=== PATIENT | female | born 1975 | race Caucasian/White ===

== ENCOUNTER 2017-09-01 17:32 | Emergency (ER) | payer OTHER ==
[~2017-09-01] VITALS: Ht 172.7 cm; Wt 105.5 kg
[~2017-09-01 17:32] MED LIST: ACET500C5 PO; ALPR1TAB2 PO; ASPI81TA3 PO; BACTDS PO; CARI350T PO; CEPH-443 PO; CLIN-73 PO; HYDR-762 PO; LACO100T3 PO; LEVE100018 PO; LEVO50TA74 PO; NAPR-688 PO; NORT25CA PO; PROP40TA4 PO; RANI150T5 PO; TRAM50TA2 PO
[2017-09-01 17:38] VITALS: Ht 172.7 cm; Wt 105.5 kg
[2017-09-01] MEDS ORDERED: CLINDAMYCIN 900 MG/D5W (PMX) 50 ML IVPB SCH (18:30)
[2017-09-01 18:46] LABS: BASOPHIL # 0.1 10^3/ul (0.0-0.1); BASOPHILS % 0.6 % (0.0-2.0); EOSINOPHILS % 0.3 % (0.0-7.0); HEMATOCRIT 37.3 % (37.0-47.0); HEMOGLOBIN 12.4 g/dl (12.0-16.0); LYMPHOCYTES # 2.8 10^3/ul (0.8-2.9); LYMPHOCYTES % 30.3 % (15.0-51.0); MEAN CORPUSCULAR HEMOGLOBIN 29.5 pg (29.0-33.0); MEAN CORPUSCULAR HGB CONC 33.2 g/dl (32.0-37.0); MEAN CORPUSCULAR VOLUME 88.8 fl (82.0-101.0); MEAN PLATELET VOLUME 10.2 fl (7.4-10.4); MONOCYTE # 0.7 10^3/ul (0.3-0.9); MONOCYTES % 7.1 % (0.0-11.0); NEUTROPHIL # 5.7 10^3/ul (1.6-7.5); NEUTROPHILS % 61.5 % (39.0-77.0); PLATELET COUNT 348 10^3/UL (140-415); RED CELL DISTRIBUTION WIDTH 12.6 % (11.5-14.5); WHITE BLOOD COUNT 9.3 10^3/ul (4.8-10.8)
--- NOTE | 2017-09-01 19:04 | RADRPT ---
PROCEDURE: XR Left Foot CLINICAL INDICATION: Trauma, post fall TECHNIQUE: AP, oblique, and lateral radiographs were submitted. COMPARISON: None FINDINGS: Osseous structures: There is an old oblique fracture deformity involving the distal left fifth metat arsal. The osseous elements otherwise appear intact. There is calcaneal spurring at the insertion of the plantar aponeurosis. Joint spaces: are well maintained, with no significant spurring, erosion or joint effusion evident. Soft tissues: appear unremarkable. IMPRESSION: 1. Old healing oblique fracture deformity involving the distal left fifth metatarsal shaft. 2. Mild calcaneal spurring 3. Otherwise, unremarkable left foot series. Physician Lola Date Time Electronically viewed and signed by Physician Lola on 09/01/2017 19:03 /
[2017-09-01 19:20] LABS: ALBUMIN 4.5 g/dl (3.3-4.9); ALBUMIN/GLOBULIN RATIO 1.28; BILIRUBIN,INDIRECT 0.5 mg/dl (0-1.1); BILIRUBIN,TOTAL 0.5 mg/dl (0.2-1.3); CALCIUM 9.6 mg/dl (8.4-10.2); CREATININE 0.66 mg/dl (0.44-1.00); POTASSIUM 3.7 mmol/L (3.5-5.1)
[2017-09-01] MEDS ORDERED: CLIN-73 PO (19:23)
[2017-09-01] MEDS ORDERED: TRAM50TA2 PO (19:23)
[2017-09-01] MEDS ORDERED: ONDANSETRON 4 MG INJ IV STA (19:25)
[2017-09-01] MEDS ORDERED: KETOROLAC 30 MG INJ IV STA (19:25)
[2017-09-01] MEDS ORDERED: KETOROLAC 30 MG INJ ONE (19:27)
[2017-09-01] MEDS ORDERED: ONDANSETRON 4 MG INJ ONE (19:27)
--- NOTE | 2017-09-01 19:29 | ERD ---
ER Documentation Chief Complaint Chief Complaint redness to bilateral lower legs since yesterday HPI This 42-year-old female presents with bilateral lower extremity redness since yesterday. Patient has a history of diabetes and recurrent lower extremity cellulitis. She denies any shortness of breath or fevers. Patient has an additional complaint of falling 2 days ago and having pain on the left foot in the distal fifth metatarsal area. She has no restricted range of motion weakness or bleeding. Patient is concerned about some bruises that she has. One being on the left marshall one being on the left thigh. ROS All systems reviewed and are negative except as per history of present illness. Medications Home Meds Active Scripts Tramadol HCl (Tramadol HCl) 50 Mg Tablet, 50 MG PO Q4 Y for PAIN, #15 TAB Prov:NICK GOYAL MD 09/01/17 Clindamycin Hcl* (Clindamycin Hcl*) 300 Mg Capsule, 300 MG PO QID for 7 Days, CAP Prov:NICK GOYAL MD 09/01/17 Naproxen* (Naproxen*) 500 Mg Tablet, 500 MG PO BID, #20 TAB Prov:GIOVANI PARSON DO 04/18/16 Clindamycin Hcl* (Clindamycin Hcl*) 300 Mg Capsule, 300 MG PO TID for 10 Days, CAP Prov:GIOVANI PARSON DO 04/18/16 Acetaminophen* (Tylophen*) 500 Mg Capsule, 1 CAP PO Q6H Y for PAIN AND OR ELEVATED TEMP, #20 CAP Prov:MATHIEU SHEPARD NP 04/09/16 Cephalexin* (Keflex*) 500 Mg Capsule, 500 MG PO QID for 10 Days, CAP Prov:MATHIEU SHEPARD NP 04/09/16 Sulfamethoxazole-Trimethoprim* (Bactrim* DS) 800-160 Mg Tab, 1 TAB PO BID for 10 Days, TAB Prov:MATHIEU SHEPARD NP 04/09/16 Sulfamethoxazole-Trimethoprim* (Bactrim* DS) 800-160 Mg Tab, 1 TAB PO BID for 10 Days, TAB Prov:BRUCE CHUNG MD 02/24/15 Cephalexin* (Keflex*) 500 Mg Capsule, 500 MG PO Q6 for 10 Days, CAP Prov:BRUCE CHUNG MD 02/24/15 Reported Medications Propranolol Hcl* (Propranolol Hcl*) 40 Mg Tablet, 40 MG PO BID, TAB 02/20/15 Tramadol HCl (Tramadol HCl) 50 Mg Tab, 50 MG PO Q6H Y for PAIN, TAB 09/10/14 Alprazolam* (Xanax*) 1 Mg Tab, 1 MG PO Q6 Y for ANXIETY, TAB 09/10/14 Carisoprodol* (Soma*) 350 Mg Tablet, 350 MG PO QHS Y for MUSCLE SPASMS, TAB 09/10/14 Lacosamide (Vimpat) 100 Mg Tablet, 100 MG PO BID, TAB 09/10/14 Ranitidine Hcl* (Ranitidine Hcl*) 150 Mg Tablet, 150 MG PO Q12, TAB 09/10/14 Nortriptyline Hcl* (Nortriptyline Hcl*) 25 Mg Capsule, 100 MG PO DAILY, CAP 09/10/14 Levothyroxine Sodium* (Levothyroxine Sodium*) 50 Mcg Tablet, 50 MCG PO AC BREAKFAST, TAB 09/10/14 Hydrocodone Bit-Acetaminophen* ([place]*) 10-325 Mg Tablet, 1 TAB PO Q6 Y for PAIN , TAB 09/10/14 Aspirin* (Aspirin* Chew) 81 Mg Tab.chew, 81 MG PO DAILY, TAB.CHEW 09/10/14 Levetiracetam* (Keppra*) 1,000 Mg Tablet, 1500 MG PO BID 04/11/13 Allergies Allergies: Coded Allergies: No Known Drug Allergies (Verified Allergy, Unknown, 02/20/15) PMhx/Soc History of Surgery: Yes (HYSTERECTOMY 2011, A& P REPAIR 2013) Anesthesia Reaction: No Hx Neurological Disorder: Yes (CRANIAL ANEURYSM, BELLS PALSY, SEIZURES) Hx Respiratory Disorders: No Hx Cardiac Disorders: No Hx Psychiatric Problems: No Hx Miscellaneous Medical Probl: Yes (diabetes) Hx Alcohol Use: No Hx Substance Use: No Hx Tobacco Use: No Smoking Status: Never smoker Physical Exam Vitals Vital Signs Date Time Temp Pulse Resp B/P Pulse Ox O2 Delivery O2 Flow Rate FiO2 09/01/17 17:38 99.2 108 18 167/96 98 Physical Exam Const: [] Alert, [id number]. Obese. Head: Atraumatic Eyes: Normal Conjunctiva ENT: Normal External Ears, Nose and Mouth. Neck: Full range of motion..~ No meningismus. Resp: Clear to auscultation bilaterally Cardio: Regular rate and rhythm, no murmurs Abd: Soft, non tender, non distended. Normal bowel sounds Skin: No petechiae or rashes there is some nontender bruises 1B on the left marshall and one being on the left thigh. There is no surrounding erythema or fluctuance Back: No midline or flank tenderness Ext: No cyanosis, or edema. There is some redness in the bilateral shins distally bilaterally. There is no calf swelling or Homans sign. There is some tenderness in the distal left fifth metatarsal area. There is no deformities. There is some mild swelling. There is no evidence of deficits or ischemia. Neur: Awake and alert Psych: Normal Mood and Affect Result Diagram: 09/01/17182909/01/171829 Results 24 hrs Laboratory Tests Test 09/01/17 18:30 White Blood Count 9.310^3/ul Red Blood Count 4.2010^6/ul Hemoglobin 12.4g/dl Hematocrit 37.3% Mean Corpuscular Volume 88.8fl Mean Corpuscular Hemoglobin 29.5pg Mean Corpuscular Hemoglobin Concent 33.2g/dl Red Cell Distribution Width 12.6% Platelet Count 79255^3/UL Mean Platelet Volume 10.2fl Neutrophils % 61.5% Lymphocytes % 30.3% Monocytes % 7.1% Eosinophils % 0.3% Basophils % 0.6% Nucleated Red Blood Cells % 0.0/100WBC Neutrophils # 5.710^3/ul Lymphocytes # 2.810^3/ul Monocytes # 0.710^3/ul Eosinophils # 0.010^3/ul Basophils # 0.110^3/ul Nucleated Red Blood Cells # 0.010^3/ul Sodium Level 141mmol/L Potassium Level 3.7mmol/L Chloride Level 102mmol/L Carbon Dioxide Level 26mmol/L Anion Gap 17 Blood Urea Nitrogen 10mg/dl Creatinine 0.66mg/dl Glucose Level 148mg/dl Calcium Level 9.6mg/dl Total Bilirubin 0.5mg/dl Direct Bilirubin 0.00mg/dl Indirect Bilirubin 0.5mg/dl Aspartate Amino Transf (AST/SGOT) 22IU/L Alanine Aminotransferase (ALT/SGPT) 34IU/L Alkaline Phosphatase 90IU/L Total Protein 8.0g/dl Albumin 4.5g/dl Globulin 3.50g/dl Albumin/Globulin Ratio 1.28 Current Medications Medications (Trade) Dose Ordered Sig/Saeid Route PRN Reason Start Time Stop Time Status Last Admin Dose Admin Clindamycin HCl/ Dextrose (Cleocin 900 Mg/ D5W (Pmx)) 50 ml @ 50 mls/hr ONCE IVPB 09/01/17 18:30 09/01/17 19:29 09/01/17 19:20 Procedures/MDM X-ray left foot 3V Interpreted by me: Bones: Ring fracture deformity of the left distal fifth metatarsal. Joints: No dislocation Foreign body: None. Impression old appearing fracture deformity of the left fifth metatarsal distally. CBC is normal. Patient was given clindamycin 900 mg IV and Toradol 30 mg IV and Zofran 4 mg IV request for pain and nausea. Patient placed in the left lower extremity walker shoe and was neurovascular intact after the shoe. Patient insists that her fall was 2 days ago and denies any previous trauma to the foot except as a child. She does have a sub-occult. Healing fracture left foot which does not appear new. Patient has redness of bilateral lower extremities with a history of recurrent cellulitis. There is no evidence of sepsis or significant leukocytosis. She will be treated empirically with clindamycin and tramadol instructions for primary care and orthopedic follow-up within the next week. She should return sooner for fevers, worsening redness, new worsening symptoms or primary care doctor. Signs or symptoms do not suggest a DVT or additional emergent causes of lower extremity symptoms. The patient was stable with no new complaints during the ER course. Clinically, there is no current evidence to suggest meningitis, sepsis, acute abdomen, pneumonia, acute coronary syndrome, pulmonary embolism, or any other emergent condition appearing to require further evaluation or hospitalization. The patient should certainly return for any new or worsening symptoms per the aftercare instructions. They should otherwise follow-up with her primary care doctor for reevaluation this week. Departure Diagnosis: Primary Impression: Foot fracture, left Encounter type: initial encounter Fracture type: closed Qualified Code: S92.902A - Closed fracture of left foot, initial encounter Additional Impression: Cellulitis Site of cellulitis: extremity Site of cellulitis of extremity: lower extremity Laterality: unspecified laterality Qualified Code: L03.119 - Cellulitis of lower extremity, unspecified laterality Condition: Stable Patient Instructions: Cellulitis, Fracture, Foot Referrals: FANNY CARLOS MD,[facility] Additional Instructions: There is an old appearing fracture in the area of pain. Recheck with primary doctor and orthopedist for pain next week for recheck sooner for worsening redness, fevers, new worsening symptoms. NICK GOYAL MD Sep 01, 2017 19:29
[2017-09-01 20:19] VITALS: BP 159/92; PULSE 92; RESP 18; TEMP 98.8
== END 2017-09-01 20:21 | disposition home or self-care (01) ==
LOC: FTE 17:32
DX: S92.902A Unspecified fracture of left foot, initial encounter for closed fracture (principal); L03.119 Cellulitis of unspecified part of limb; E11.9 Type 2 diabetes mellitus without complications; W18.39XA Other fall on same level, initial encounter; Y92.9 Unspecified place or not applicable; Z79.82 Long term (current) use of aspirin
CPT/HCPCS: 36415; 73630; 80053; 85025; 96374; 96375; J1885; J2405; Z7502; Z7610

== ENCOUNTER 2017-09-12 17:21 | Emergency (ER) | payer OTHER ==
[~2017-09-12] VITALS: Ht 157.5 cm; Wt 106.5 kg
[2017-09-12 17:26] VITALS: Ht 157.5 cm; Wt 106.5 kg
--- NOTE | 2017-09-12 23:22 | ERD ---
ER Documentation Chief Complaint Chief Complaint chest pain x 4 days HPI The patient is a 42-year-old female, presenting to the ER because of intermittent bilateral chest pain for 4 days, she had symptoms previously. She denies fever, syncope, near syncope, neck pain, chest pain with exertion/ vomiting/diaphoresis, dyspnea, abdominal pain, vomiting, dysuria, diarrhea. She does not smoke nor drink Past medical history: Anxiety, epilepsy, hypothyroidism, diabetes mellitus Past surgical history: Hysterectomy, brain aneurysm ROS All systems reviewed and are negative except as per history of present illness. Medications Home Meds Active Scripts Ibuprofen* (Motrin*) 600 Mg Tab, 600 MG PO Q6, #20 TAB Prov:LONNY BROWN MD 09/13/17 Reported Medications Omeprazole* (Omeprazole*) 40 Mg Capsule.dr, 40 MG PO DAILY, #30 CAP 09/12/17 Atorvastatin* (Atorvastatin*) 40 Mg Tablet, 40 MG PO QHS, #30 TAB 09/12/17 Metformin Hcl* (Metformin Hcl*) 500 Mg Tablet, 500 MG PO WITH BREAKFAST DINNE, # 60 TAB 09/12/17 Propranolol Hcl* (Propranolol Hcl*) 40 Mg Tablet, 40 MG PO BID, TAB 02/20/15 Alprazolam* (Xanax*) 1 Mg Tab, 1 MG PO DAILY Y for ANXIETY, TAB 09/10/14 Carisoprodol* (Soma*) 350 Mg Tablet, 350 MG PO QHS Y for MUSCLE SPASMS, TAB 09/10/14 Lacosamide (Vimpat) 100 Mg Tablet, 100 MG PO BID, TAB 09/10/14 Levothyroxine Sodium* (Levothyroxine Sodium*) 50 Mcg Tablet, 50 MCG PO AC BREAKFAST, TAB 09/10/14 Hydrocodone Bit-Acetaminophen* ([place]*) 10-325 Mg Tablet, 1 TAB PO Q6 Y for PAIN , TAB 09/10/14 Aspirin* (Aspirin* Chew) 81 Mg Tab.chew, 81 MG PO DAILY, TAB.CHEW 09/10/14 Levetiracetam* (Keppra*) 1,000 Mg Tablet, 1500 MG PO BID 04/11/13 Discontinued Reported Medications Tramadol HCl (Tramadol HCl) 50 Mg Tab, 50 MG PO Q6H Y for PAIN, TAB 09/10/14 Ranitidine Hcl* (Ranitidine Hcl*) 150 Mg Tablet, 150 MG PO Q12, TAB 09/10/14 Nortriptyline Hcl* (Nortriptyline Hcl*) 25 Mg Capsule, 100 MG PO DAILY, CAP 09/10/14 Discontinued Scripts Tramadol HCl (Tramadol HCl) 50 Mg Tablet, 50 MG PO Q4 Y for PAIN, #15 TAB Prov:NICK GOYAL MD 09/01/17 Clindamycin Hcl* (Clindamycin Hcl*) 300 Mg Capsule, 300 MG PO QID for 7 Days, CAP Prov:NICK GOYAL MD 09/01/17 Naproxen* (Naproxen*) 500 Mg Tablet, 500 MG PO BID, #20 TAB Prov:GIOVANI PARSON DO 04/18/16 Clindamycin Hcl* (Clindamycin Hcl*) 300 Mg Capsule, 300 MG PO TID for 10 Days, CAP Prov:GIOVANI PARSON DO 04/18/16 Acetaminophen* (Tylophen*) 500 Mg Capsule, 1 CAP PO Q6H Y for PAIN AND OR ELEVATED TEMP, #20 CAP Prov:MATHIEU SHEPARD NP 04/09/16 Cephalexin* (Keflex*) 500 Mg Capsule, 500 MG PO QID for 10 Days, CAP Prov:MATHIEU SHEPARD NP 04/09/16 Sulfamethoxazole-Trimethoprim* (Bactrim* DS) 800-160 Mg Tab, 1 TAB PO BID for 10 Days, TAB Prov:MATHIEU SHEPARD NP 04/09/16 Sulfamethoxazole-Trimethoprim* (Bactrim* DS) 800-160 Mg Tab, 1 TAB PO BID for 10 Days, TAB Prov:BRUCE CHUNG MD 02/24/15 Cephalexin* (Keflex*) 500 Mg Capsule, 500 MG PO Q6 for 10 Days, CAP Prov:BRUCE CHUNG MD 02/24/15 Allergies Allergies: Coded Allergies: No Known Drug Allergies (Verified Allergy, Unknown, 09/12/17) PMhx/Soc History of Surgery: Yes (HYSTERECTOMY 2011, A& P REPAIR 2013) Anesthesia Reaction: No Hx Neurological Disorder: Yes (CRANIAL ANEURYSM, BELLS PALSY, SEIZURES) Hx Respiratory Disorders: No Hx Cardiac Disorders: No Hx Psychiatric Problems: No Hx Miscellaneous Medical Probl: Yes (diabetes) Hx Alcohol Use: No Hx Substance Use: No Hx Tobacco Use: No Physical Exam Vitals Vital Signs Date Time Temp Pulse Resp B/P Pulse Ox O2 Delivery O2 Flow Rate FiO2 09/12/17 23:47 98.1 82 20 158/80 98 Room Air 09/12/17 17:26 98.1 100 20 158/80 98 Physical Exam Const: No acute distress. Head: Atraumatic. Eyes: Normal Conjunctiva. ENT: Normal External Ears, Nose and Mouth. Neck: Full range of motion. No meningismus. Resp: Clear to auscultation bilaterally. Cardio: Regular rate and rhythm. Abd: Soft, non distended, normal bowel sounds, non tender. Skin: No petechiae or rashes. Back: No midline or flank tenderness. Ext: No cyanosis, or edema. Neur: Awake and alert. No focal deficit Psych: Normal Mood and Affect. Result Diagram: 09/12/170 09/12/170 Results 24 hrs Laboratory Tests Test 09/12/17 23:30 White Blood Count 11.910^3/ul Red Blood Count 4.6010^6/ul Hemoglobin 13.7g/dl Hematocrit 40.8% Mean Corpuscular Volume 88.7fl Mean Corpuscular Hemoglobin 29.8pg Mean Corpuscular Hemoglobin Concent 33.6g/dl Red Cell Distribution Width 12.8% Platelet Count 59528^3/UL Mean Platelet Volume 9.8fl Neutrophils % 47.6% Lymphocytes % 42.0% Monocytes % 7.8% Eosinophils % 1.5% Basophils % 0.8% Nucleated Red Blood Cells % 0.0/100WBC Neutrophils # 5.610^3/ul Lymphocytes # 5.010^3/ul Monocytes # 0.910^3/ul Eosinophils # 0.210^3/ul Basophils # 0.110^3/ul Nucleated Red Blood Cells # 0.010^3/ul D-Dimer 870.19ng/ml D-Dimer Comment Sodium Level 145mmol/L Potassium Level 3.9mmol/L Chloride Level 105mmol/L Carbon Dioxide Level 28mmol/L Anion Gap 16 Blood Urea Nitrogen 12mg/dl Creatinine 0.79mg/dl Glucose Level 114mg/dl Calcium Level 9.7mg/dl Troponin I < 0.012ng/ml Current Medications Medications (Trade) Dose Ordered Sig/Saeid Route PRN Reason Start Time Stop Time Status Last Admin Dose Admin Ketorolac Tromethamine (Toradol) 30 mg ONCE STAT IV 09/12/17 23:32 09/12/17 23:33 DC 09/13/17 00:00 Pantoprazole (Protonix Tab) 40 mg ONCE ONCE PO 09/13/17 00:00 09/13/17 00:01 DC 09/12/17 23:59 IV Flush 10 ml 10 ml STK-MED ONCE .ROUTE 09/13/17 01:51 09/13/17 01:52 DC 09/13/17 02:06 Sodium Chloride 100 ml @ ud STK-MED ONCE .ROUTE 09/13/17 01:51 09/13/17 01:52 DC 09/13/17 02:06 Iohexol (Omnipaque) 100 ml @ ud STK-MED ONCE .ROUTE 09/13/17 01:51 09/13/17 01:52 DC 09/13/17 02:06 Procedures/[place] [id number] Radiology Main Line: [phone] DIAGNOSTIC IMAGING REPORT Patient: SUKI WHITEHEAD : 1975 Age: 42 Sex: F MR #: [id number] DOS: 09/12/17 [facility]2 Ordering MD: LONNY BROWN MD Location: E/R Room/Bed: PROCEDURE: XR Chest. CLINICAL INDICATION: Chest pain. TECHNIQUE: AP view of the chest was obtained. COMPARISON: Multiple prior exams including most recent on 02/21/2015 FINDINGS: The cardiomediastinal silhouette is within normal limits. The lungs are clear. No signs of pleural fluid or pneumothorax are seen. There is moderate right convex scoliosis in the mid thoracic spine. The soft tissues are unremarkable. IMPRESSION: 1. No evidence for active cardiopulmonary disease. RPTAT: HGAS .Pan Elizondo MD, MD Date Time Electronically viewed and signed by .Pan Elizondo MD, MD on 09/12/2017 23: 59 .S/ CC: LONNY BROWN MD [place] [address] Radiology Main Line: [phone] DIAGNOSTIC IMAGING REPORT Patient: SUKI WHITEHEAD : 1975 Age: 42 Sex: F MR #: [id number] DOS: 09/13/17 0147 Ordering MD: LONNY BROWN MD Location: E/R Room/Bed: PROCEDURE: CT angiogram of the chest with contrast. CLINICAL INDICATION: Chest pain. TECHNIQUE: CT angiogram of the chest was obtained using a multi-detector high -resolution CT. Contiguous axial images were obtained during the dynamic injection of 100 cc of Omnipaque 350 intravenous contrast. Coronal and sagittal reformatted images were obtained. 3-D reformatted images were also obtained. Images were reviewed on a PACS workstation. DICOM images are available. One or more of the following dose reduction techniques were used: - Automated exposure control. - Adjustment of the mA and/or kV according to patient size. - Use of iterative reconstruction technique. Exam CTD/vol = 19.89 mGy. Total exam DLP = 834.71 mGy-cm. COMPARISON: None. FINDINGS: The main pulmonary artery followed to the segmental divisions are well opacified. There is no filling defect or evidence of pulmonary embolism. The heart is normal in size. There is no pericardial thickening or effusion. The aorta is of normal course and caliber without evidence of aneurysm or dissection. There is no evidence of chest wall mass. The visualized thyroid is unremarkable. There are no enlarged axillary lymph nodes. There are no enlarged mediastinal or hilar lymph nodes by CT criteria. There is no parenchymal nodule or consolidation. There is no pleural effusion. There is bilateral mild peribronchial thickening. Limited evaluation of the upper abdomen demonstrates prior cholecystectomy. IMPRESSION: No evidence of pulmonary embolism or aortic dissection. Bilateral mild peribronchial thickening compatible with bronchitis. .Miko Hardy MDMD Date Time Electronically viewed and signed by .Miko Hardy MD, MD on 09/13/2017 02:33 .T/ CC: LONNY BROWN MD EKG: Read by emergency physician Rate/Rhythm: Normal Sinus Rhythm 94 beats/min QRS, ST, T-waves: No ST elevation, no T inversion, low voltage, IRBBB Impression: Abnormal EKG MEDICAL MAKING DECISION: The patient is a 42-year-old female, presenting with intermittent chest pain of unclear etiology for 1 week. She was treated with Toradol 30 mg IV for pain and Protonix 40 mg p.o. good response. She is stable for outpatient follow-up The differential diagnoses considered include but are not limited to acute coronary syndrome, acute myocardial infarction, pericarditis, pulmonary embolism , aortic dissection, pneumonia, pleural effusion, pneumothorax, GERD, chest wall pain. Departure Condition: Good Comments She was discharged with Motrin The patient's blood pressure was elevated (>120/80) but appears stable without evidence of hypertension emergency or urgency. The patient was counseled about the risks of hypertension and urged to pursue outpatient monitoring and therapy within a week with their primary care physician. I discussed the findings with the patient. I advised the patient to follow-up with the primary physician in about 1-2 days, sooner if needed and return if any concern. Disclaimer: Inadvertent spelling and grammatical errors are likely due to EHR/ dictation software use and do not reflect on the overall quality of patient care. Also, please note that the electronic time recorded on this note does not necessarily reflect the actual time of the patient encounter. LONNY BROWN MD Sep 12, 2017 23:21
[2017-09-12] MEDS ORDERED: KETOROLAC 30 MG INJ IV STA (23:32)
[2017-09-12 23:45] LABS: BASOPHIL # 0.1 10^3/ul (0.0-0.1); BASOPHILS % 0.8 % (0.0-2.0); EOSINOPHILS # 0.2 10^3/ul (0.0-0.5); EOSINOPHILS % 1.5 % (0.0-7.0); HEMATOCRIT 40.8 % (37.0-47.0); HEMOGLOBIN 13.7 g/dl (12.0-16.0); MEAN CORPUSCULAR HEMOGLOBIN 29.8 pg (29.0-33.0); MEAN CORPUSCULAR HGB CONC 33.6 g/dl (32.0-37.0); MEAN CORPUSCULAR VOLUME 88.7 fl (82.0-101.0); MEAN PLATELET VOLUME 9.8 fl (7.4-10.4); MONOCYTE # 0.9 10^3/ul (0.3-0.9); MONOCYTES % 7.8 % (0.0-11.0); NEUTROPHIL # 5.6 10^3/ul (1.6-7.5); NEUTROPHILS % 47.6 % (39.0-77.0); PLATELET COUNT 395 10^3/UL (140-415); RED CELL DISTRIBUTION WIDTH 12.8 % (11.5-14.5); WHITE BLOOD COUNT 11.9 10^3/ul (4.8-10.8)
[2017-09-12 23:47] VITALS: BP 158/80; PULSE 82; RESP 20; TEMP 98.1
[2017-09-12] MEDS ORDERED: METF500T4 PO (23:49)
[2017-09-12] MEDS ORDERED: OMEP40CA6 PO (23:49)
[2017-09-12] MEDS ORDERED: ATOR40TA68 PO (23:49)
[2017-09-12 23:55] LABS: ANION GAP 16 (8-16); BLOOD UREA NITROGEN 12 mg/dl (7-20); CALCIUM 9.7 mg/dl (8.4-10.2); CARBON DIOXIDE 28 mmol/L (21-31); CHLORIDE 105 mmol/L (97-110); CREATININE 0.79 mg/dl (0.44-1.00); GLUCOSE 114 mg/dl (70-220); POTASSIUM 3.9 mmol/L (3.5-5.1); SODIUM 145 mmol/L (135-144)
--- NOTE | 2017-09-12 23:59 | RADRPT ---
PROCEDURE: XR Chest. CLINICAL INDICATION: Chest pain. TECHNIQUE: AP view of the chest was obtained. COMPARISON: Multiple prior exams including most recent on 02/21/2015 FINDINGS: The cardiomediastinal silhouette is within normal limits. The lungs are clear. No signs of pleural f luid or pneumothorax are seen. There is moderate right convex scoliosis in the mid thoracic spine. T he soft tissues are unremarkable. IMPRESSION: 1. No evidence for active cardiopulmonary disease. RPTAT: HGAS .Pan Elizondo MD, MD Date Time Electronically viewed and signed by .Pan Elizondo MD, MD on 09/12/2017 23:59 .S/
[2017-09-13] MEDS ORDERED: PANTOPRAZOLE (EC) 40 MG TAB PO ONE
[2017-09-13 00:10] LABS: TROPONIN-I < 0.012 ng/ml (0.00-0.12)
[2017-09-13 00:12] LABS: D-DIMER 870.19 ng/ml (<460)
[2017-09-13] MEDS ORDERED: IOHEXOL 100 ML ONE (01:51)
[2017-09-13] MEDS ORDERED: SOD CHLORIDE 0.9% 100 ML ONE (01:51)
--- NOTE | 2017-09-13 02:34 | RADRPT ---
PROCEDURE: CT angiogram of the chest with contrast. CLINICAL INDICATION: Chest pain. TECHNIQUE: CT angiogram of the chest was obtained using a multi-detector high-resolution CT. Con tiguous axial images were obtained during the dynamic injection of 100 cc of Omnipaque 350 intraveno us contrast. Coronal and sagittal reformatted images were obtained. 3-D reformatted images were al so obtained. Images were reviewed on a PACS workstation. DICOM images are available. One or more of the following dose reduction techniques were used: - Automated exposure control. - Adjustment of the mA and/or kV according to patient size. - Use of iterative reconstruction technique. Exam CTD/vol = 19.89 mGy. Total exam DLP = 834.71 mGy-cm. COMPARISON: None. FINDINGS: The main pulmonary artery followed to the segmental divisions are well opacified. There is no filli ng defect or evidence of pulmonary embolism. The heart is normal in size. There is no pericardial thickening or effusion. The aorta is of normal course and caliber without evidence of aneurysm or d issection. There is no evidence of chest wall mass. The visualized thyroid is unremarkable. There are no enla rged axillary lymph nodes. There are no enlarged mediastinal or hilar lymph nodes by CT criteria. There is no parenchymal nodule or consolidation. There is no pleural effusion. There is bilateral mild peribronchial thickening. Limited evaluation of the upper abdomen demonstrates prior cholecystectomy. IMPRESSION: No evidence of pulmonary embolism or aortic dissection. Bilateral mild peribronchial thickening compatible with bronchitis. .Miko Hardy MD, MD Date Time Electronically viewed and signed by .Miko Hardy MD, MD on 09/13/2017 02:33 .T/
[2017-09-13] MEDS ORDERED: IBUP-1542 PO (02:40)
== END 2017-09-13 03:29 | disposition home or self-care (01) ==
LOC: E/R 17:21
DX: R07.9 Chest pain, unspecified (principal); E03.9 Hypothyroidism, unspecified; E11.9 Type 2 diabetes mellitus without complications; Z79.84 Long term (current) use of oral hypoglycemic drugs; Z79.82 Long term (current) use of aspirin
CPT/HCPCS: 36415; 71010; 71275; 80048; 84484; 85025; 85378; 96374; J1885; Q9967; Z7502; Z7610

== ENCOUNTER 2018-04-29 13:06 | Emergency (ER) | END 2018-04-29 14:37 | disposition home or self-care (01) ==